=== PATIENT | male | born 2000 | race Caucasian/White ===

== ENCOUNTER 2020-06-17 06:47 | Emergency (ER) | payer BC ==
[2020-06-17 07:50] LABS: HEMOGLOBIN 15.3 gm/dl (14.0-17.5); RED BLOOD COUNT 5.29 M/UL (4.20-5.50)
[2020-06-17 08:01] LABS: BUN/CREATININE RATIO 12 (0-10)
== END 2020-06-17 09:21 | disposition home or self-care (01) ==
LOC: ER1 06:47
PROVIDERS: Student in an Organized Health Care Education/Training Program
DX: R07.89 Other chest pain (principal); E03.9 Hypothyroidism, unspecified; Z79.899 Other long term (current) drug therapy
CPT/HCPCS: 71046; 80053; 82550; 82553; 83874; 84484; 85025; 93005; 99285

== ENCOUNTER 2021-02-11 13:25 | Emergency (ER) | payer BC ==
[2021-02-11 15:45] LABS: HEMOGLOBIN 15.2 gm/dl (14.0-17.5); RED BLOOD COUNT 5.1 M/UL (4.20-5.50); WHITE BLOOD COUNT 6.5 K/UL (4.5-11.0)
[2021-02-11 16:13] LABS: BUN/CREATININE RATIO 12 (0-10)
== END 2021-02-11 16:58 | disposition home or self-care (01) ==
LOC: ER1 13:25
PROVIDERS: Physician Assistant
DX: R07.9 Chest pain, unspecified (principal)
CPT/HCPCS: 71045; 80053; 82550; 82553; 83874; 84484; 85025; 93005; 99285